=== PATIENT | male | born 1980 | race Caucasian/White ===

== ENCOUNTER 2021-08-12 19:31 | Emergency (ER) | payer SELFPAY ==
[~2021-08-12] VITALS: Ht 180.3 cm; Wt 109.1 kg
[2021-08-12] MEDS ORDERED: HYDROCODONE/ACETAMINOPHEN 5-325 MG TABLET PO ONE (20:00)
[2021-08-12 20:01] VITALS: BP 112/68
[2021-08-12] MEDS ORDERED: ACETAMINOPHEN 325 MG TABLET PO ONE (21:15)
[2021-08-12] MEDS ORDERED: IBUPROFEN 400 MG TABLET PO ONE (21:15)
== END 2021-08-12 21:30 | disposition home or self-care (01) ==
LOC: EMS 19:33
DX: G89.29 Other chronic pain (principal); M79.10 Myalgia, unspecified site; F17.210 Nicotine dependence, cigarettes, uncomplicated; Z76.0 Encounter for issue of repeat prescription
CPT/HCPCS: 99283